=== PATIENT | female | born 1940 | race American Indian/Alaskan Native ===

== ENCOUNTER 2017-05-10 10:44 | Outpatient (CLI) | payer MEDICARE ==
--- NOTE | 2017-05-10 11:28 | XRay Report ---
XRAY CHEST TWO VIEWS: 05/10/17 10:44:00 CLINICAL: Cough. COMPARISON: None FINDINGS: Normal heart and pulmonary vasculature. The lungs are normally expanded and clear.Kyphoscoliosis and degenerative changes in the spine. Aortic tortuosity. IMPRESSION: No acute cardiopulmonary process.
== END 2017-05-10 10:45 | disposition home or self-care (01) ==
LOC: SPVIMAG 10:44
PROVIDERS: ATTEND Internal Medicine
DX: R05 Cough (principal); M41.84 Other forms of scoliosis, thoracic region; M47.894 Other spondylosis, thoracic region; Q25.46 Tortuous aortic arch
CPT/HCPCS: 71046

== ENCOUNTER 2018-04-17 11:17 | Outpatient (CLI) | payer MEDICARE ==
--- NOTE | 2018-04-18 13:26 | Mammography Report ---
BILATERAL DIGITAL SCREENING MAMMOGRAM with CAD : 04/17/18 11:17:00 CLINICAL: Routine screening. COMPARISON:12/04/12 FINDINGS: The breasts are heterogeneously dense, which may obscure small masses. No mass, architectural distortion or suspicious calcifications. IMPRESSION: No mammographic evidence of malignancy. BI-RADS CATEGORY: 2 -- Benign RECOMMENDATION: Routine mammographic screening in one year. COMMENT: Patient follow-up letters are generated by our [employer] application.
== END 2018-04-17 11:18 | disposition home or self-care (01) ==
LOC: SPVWC 11:17
PROVIDERS: ATTEND Internal Medicine
DX: Z12.31 Encounter for screening mammogram for malignant neoplasm of breast (principal)
CPT/HCPCS: 77067